=== PATIENT | male | born 1985 | race African-American/Black ===

== ENCOUNTER 2018-07-01 20:27 | Emergency (ER) | payer SELFPAY ==
[~2018-07-01] VITALS: Ht 180.3 cm; Wt 103.0 kg
[2018-07-01 22:38] VITALS: BP 110/68
== END 2018-07-01 22:29 | disposition left against medical advice (07) ==
LOC: ER 20:27
DX: Z53.21 Procedure and treatment not carried out due to patient leaving prior to being seen by health care provider (principal)